=== PATIENT | male | born 1940 | race Caucasian/White ===

== ENCOUNTER 2016-08-03 06:29 | Emergency (ER) | payer MEDICARE, OTHER ==
[2016-08-03 07:19] LABS: RED BLOOD COUNT 5.21 M/UL (4.20-5.50)
== END 2016-08-03 17:00 ==
LOC: ER1 06:29
PROVIDERS: Physician Assistant
DX: I71.4 Abdominal aortic aneurysm, without rupture (principal); R07.9 Chest pain, unspecified; R00.1 Bradycardia, unspecified; E11.9 Type 2 diabetes mellitus without complications; I10 Essential (primary) hypertension; Z88.0 Allergy status to penicillin; Z95.2 Presence of prosthetic heart valve; Z79.02 Long term (current) use of antithrombotics/antiplatelets; Z79.84 Long term (current) use of oral hypoglycemic drugs; Z79.899 Other long term (current) drug therapy
CPT/HCPCS: 36415; 71010; 71275; 80053; 81001; 82550; 82553; 83690; 83874; 84484; 85025; 85610; 85730; 93005; 99285; J7050; Q9963

== ENCOUNTER 2016-09-20 01:23 | Observation (INO) | payer OTHER ==
[~2016-09-20] VITALS: Ht 177.8 cm; Wt 102.1 kg
[2016-09-20 02:42] LABS: HEMOGLOBIN 13.8 gm/dl (14.0-17.5); RED BLOOD COUNT 4.71 M/UL (4.20-5.50); WHITE BLOOD COUNT 7.4 K/UL (4.5-11.0)
[2016-09-20] MEDS ORDERED: LORAZEPAM2 MG PO (06:16)
[2016-09-20] MEDS ORDERED: PLAVIX 75 MG TA75 MG PO (06:17)
[2016-09-20] MEDS ORDERED: VITAMIN D31000 UNIT PO (06:17)
[2016-09-20] MEDS ORDERED: ASPIRIN81 MG PO (06:18)
[2016-09-20] MEDS ORDERED: TOPROL XL100 MG PO (06:24)
[2016-09-20] MEDS ORDERED: LIPITOR TAB 2020 MG PO (06:24)
[2016-09-20] MEDS ORDERED: PROTONIX40 MG PO (06:25)
[2016-09-20] MEDS ORDERED: NORVASC 5 MG TAB5 MG PO (06:25)
[2016-09-20] MEDS ORDERED: ISOSORBIDE MONO60 MG PO (06:25)
== END 2016-09-20 14:36 | disposition home or self-care (01) ==
LOC: ER1 01:23 → MED SURG 4 04:00 → ZEROF 04:00 → MED SURG 4 06:21
PROVIDERS: Emergency Medicine; ADMIT Internal Medicine
DX: R00.1 Bradycardia, unspecified (principal); I44.1 Atrioventricular block, second degree; R06.02 Shortness of breath; I71.4 Abdominal aortic aneurysm, without rupture; I35.0 Nonrheumatic aortic (valve) stenosis; I48.91 Unspecified atrial fibrillation; E78.5 Hyperlipidemia, unspecified; I12.9 Hypertensive chronic kidney disease with stage 1 through stage 4 chronic kidney disease, or unspecified chronic kidney disease; E11.22 Type 2 diabetes mellitus with diabetic chronic kidney disease; N18.9 Chronic kidney disease, unspecified; Z95.2 Presence of prosthetic heart valve; Z86.73 Personal history of transient ischemic attack (TIA), and cerebral infarction without residual deficits; Z79.82 Long term (current) use of aspirin; Z79.02 Long term (current) use of antithrombotics/antiplatelets; Z79.899 Other long term (current) drug therapy; Z88.0 Allergy status to penicillin; Z87.891 Personal history of nicotine dependence
CPT/HCPCS: 36415; 71010; 80053; 80061; 82550; 82553; 82962; 83036; 83874; 84484; 85025; 93005; 99285; G0378